=== PATIENT | female | born 1980 | race Two or more races ===

== ENCOUNTER 2025-03-08 08:17 | Emergency (ER) | payer OTHER, SELFPAY ==
--- OUTSIDE RECORDS SUMMARY | 2024-03-10 04:45 | XMS_ITS ---
Author Organization [facility] Address [address] [facility] [address] [place] [address] Care Team Providers Care Professor Of Forest Planning Name Role Phone Faby Quinteros Primary Care Provider [phone] Faby Quinteros M.D. Unavailabl e Martha Valdivia REASON FOR VISIT BLOOD DRAW Encounters Encounter Location Date Provider Diagnosis [facility] [address] [facility] [address] [place] [address] 03/10/2024 Martha Velázquez Plan Of Treatment No Information Progress Notes * TREMAINE GRAYSONDOB :1980 (44 yo F)Acc No.[id number]:03/10/2024 Patient: TREMAINE WHALEN Appointment Provider: Arron Velázquez, MSN, TEACHER, CUSTOM CLOTHIER-C :1980 A ge:43 Y S ex:Female Supervising Provider:Faby Quinteros MD Phone: Date:03/10/2024 Address:[facility] [address], [place], [place] Pcp:Faby Quinteros * Images: * Electronic signature of Linda Quinteros M.D. on 03/08/2025 at 07:37 AM CDT Sign off status: Pending * Appointment Provider: Arron Velázquez, MSN, TEACHER, CUSTOM CLOTHIER-C Date: 0 03/10/2024 Generated for Printi ng/Faxing/eTransmitting on: 0 03/08/2025 07:37 AM CDT
--- OUTSIDE RECORDS SUMMARY | 2025-01-19 05:15 | XMS_ITS ---
Author Organization [facility] Address [address] [place], [place] [id number] Care Team Providers Care Cloud Infrastructure Architect Name Role Phone Jasmine Russell Primary Care Provider REASON FOR VISIT PAP Social History Sex Assigned At : Social History Observation Description Sex Assigned At Female Encounters Encounter Location Date Provider Diagnosis Third [address] [place] [address], [place] [address] 01/19/2025 Jasmine Russell Plan Of Treatment Next Appt Details Provider Name:Jasmine moyer, 03/22/2025 09:15:00 AM, [address] [place] [address], [facility] [address], [facility], [place], [address], Provider Name:Jasmine moyer, 04/27/2025 09:15:00 AM, [address] [place] [address], [facility], [place], [address], Progress Notes * Nazia MANLEYDOB:1979 (44 yo F)Acc No.[id number]:01/19/2025 Medical Note Patient: Quinton HYMANPEREZ Nazia Provider: Thony Russell MD :1980 A ge:44 Y S ex:Female Date:01/19/2025 Address[address] [place], [phone] Subjective: * Chief Complaints: * 1 . PAP. * Medical History: Objective: * Vitals: Assessment: Plan: * Treatment: * Billing Information: * Visit Code: * Procedure Codes: * Electronic signature of Mine Russell MD on 03/08/2025 at 08:37 AM EDT Sign off status: Pending * Provider: Thony Russell MD Date: 01/19/2025 Generated for Pino boone/Ashkan/Nieves on: 03/08/2025 08:37 AM EDT
--- OUTSIDE RECORDS SUMMARY | 2025-03-07 05:00 | XMS_ITS ---
Author Organization [facility] Address [address] [place], [place] [address] Care Team Providers Care Inventory Checker Name Role Phone Jasmine Russell Primary Care Provider [phone] Allergies No Known Allergies REASON FOR VISIT Urgent Care F/U- [facility], 03/06, Boil behind LT Ear Medications Medication SIG (Take, Route, Frequency, Duration) Notes Start Date End Date Status Amoxicillin-Pot Clavulanate 875-125 MG 1 tablet Orally every 12 hrs Active Semaglutide-Weight Management 1.7 MG/0.75ML 0.5 mL Subcutaneous weekly Active Melatonin 5 MG 1 tablet in the even ing Orally Once a day as needed Not-Taking Social History Sex Assigned At : Social History Observation Description Sex Assigned At Female Vital Signs Temperature 97.3 degrees Fahrenheit 03/07/20 25 Weight 290.6 lbs 03/07/2025 Height 66 in 03/07/2025 BMI 46.9 kg/m2 03/07/2025 Blood pressure systolic 117 mm Hg 03/07/20 25 Blood pressure diastolic 76 mm Hg 025 Heart Rate 73 /min 03/07/2025 Respiratory Rate 16 /min 03/07/2025 Oximetry 95 % 03/07/2025 Weight-kg 131.82 kg 03/07/2025 Height-cm 167.64 cm 03/07/2025 Molly Bradley 03/07/2025 09 :14:06 AM EDT > Encounters Encounter Location Date Provider Diagnosis [address], [facility], [place] [address] 03/07/2025 Jasmine Russell Screening for luis fernando ast cancer Z12.39 and Abscess of external ear, left H60.02 Assessments Encounter Date Diagnosis (ICD Code) Assessment Notes Treatment Notes Treatment Clinical Notes Section Notes 03/07/2025 Screening for breast cancer (ICD-10 - Z12.39) The patient requires a new order for a mammogram, as she has not yet undergone the mammogram that was ordered on 01/12/25. 03/07/2025 Abscess of external ear, left (ICD-10 - H60.02) differential: mastioditis, cellulitis,skin abscess, lymphadenitis, and shingles, and was advised to take Tylenol for pain, complete the prescribed course of antibiotics, monitor for signs of shingles (such as a painful burning rash, itching, or a rash following a specific pattern), and report to the clinic or go to the ER immediately if symptoms develop. Plan Of Treatment Treatment Notes Assessment Notes Screening for breast cancer The patient requires a new order for a mammogram, as she has not yet undergone the mammogram that was ordered on 01/12/25. Abscess of external ear, left differenti al: mastioditis, cellulitis,skin abscess, lymphadenitis, and shingles, and was advised to take Tylenol for pain, complete the prescribed course of antibiotics, monitor for signs of shingles (such as a painful burning rash, itching, or a rash following a specific pattern), and report to the clinic or go to the ER immediately if symptoms develop. Pending Test Test Name Order Date MAMMOGRAM, SCREENING 03/07/2025 Next Appt Details Follow Up: 2 Weeks, Reason: ear boil Provider Name:Jasmine moyer, 03/22/2025 09:15:00 AM, [address] [facility], [facility], [place], [address], Provider Name:Jasmine moyer, 04/27/2025 09:15:00 AM, [address] [facility], [facility], [place], [address], Progress Notes * Divya MANLEY:1979 (44 yo F)Acc No.[id number]:03/07/2025 Medical Note Patient: Nazia WHALEN Provider: Thony Russell MD :1980 A ge:44 Y S ex:Female Date:03/07/2025 Address:[address] [place], [place] [address] [id number] Subjective: * Chief Complaints: * 1 . Urgent Care F/U- [facility], 03/06, Boil behind LT Ear. * HPI: I nterim History: The patient presenting with a chief complaint of severe ear pain and swelling from behind left ear raidaiting to cheek t hat has been present since Friday. The pain is rated 10/10 in intensity and is described as constant, with the patient reporting an inability to lie on the affected side due to discomfort. The swelling began around the ear and has progressively worsened. The patient denies any visible rash at the site of the swelling. The patient was seen at an urgent care clinic yesterday where she was diagnosed with a possible shingles outbreak?? and abscess of ear. She was p rescribed a 10-day course of Augmentin/Clav and advised to take pain medications for pain management. The patient denies any associated symptoms such as: Hearing loss Facial pain or palsy Fever There are no concerns of difficulty swallowing or breathing. The patient reports no history of previous similar episodes and denies any recent trauma to the affected area. No neurological deficits are noted, and there are no concerns for facial paralysis or other cranial nerve abnormalities. of note: The patient does have established care with sleep medicine, obstetrics/gynecology (OBGYN), and dermatology(pt was told skin tags removal are cosmetic procedure). * ROS: N egative except mentioned above in the HPI. * Medical History: * Surgical History: C -section 2012, left ankle surgery 2021, tubal ligation 2013. * Hospitalization/Major Diagno stic Procedure: s ee surgeries , migraines . * Family History: F ather: alive, diagnosed with Heart Disease, Diabetes. M other: alive. P aternal Grand Father: . P aternal Grand Mother: . M aternal Grand Father: . M aternal Grand Mother: . B rother: kidney failure, toe amputation. 2 brother(s) , 1 sister(s) . . * Medications: T aking Amoxicillin-Pot Clavulanate 875-125 MG Tablet 1 tablet Orally every 12 hrs , Taking Semaglutide-Weight Management 1.7 MG/0.75ML Solution Auto-injector 0.5 mL Subcutaneous weekly , Not-Taking/PRN Melatonin 5 MG Tablet 1 tablet in the evening Orally Once a day as needed , Medication List reviewed and reconciled with the patient * Allergies: N .K.D.A. Objective: * Vitals: T emp:97.3F, Wt:290.6lbs, Ht: 66 in, BMI:46.9Index, BP:117/76mm Hg, HR:73/min, RR:16/min, Pain scale:101-10, Oxygen sat %:95%, Wt-k.82 kg, Ht-cm: 167.64 cm, Body Surface Area: 2.48. Molly Bradley 03/07/2025 09:14:06 AM EDT >. * Examination: C QM Exceptions: Currently taking Aspirin: A spirin Use: N o G eneral appearance: alert, pleasant, well-nourished and in no acute distress. Head: normocephalic, atraumatic. Eyes: pupils equal, round, reactive to light. Heart: regular rate and rhythm without murmurs, gallops, clicks or rubs. Lungs: clear to auscultation bilaterally, with good air movement and no rales, rhonchi or wheezes. Psych: alert and oriented x 3, cooperative with exam, maintains good eye contact. Skin: No rashes. G eneral Examination: Ears: N o visible rashor erythema on the skin behind the left ear or surrounding area. Localized bumpbehind the left ear, about1.5 cmin diameter, with afirm, non-tenderconsistency. No obviouspus, discharge, ordrainagefrom the area. . Assessment: * Assessment: 1. A bscess of external ear, left - H60.02 (Primary) 2 . S creening for breast cancer - Z12.39 Plan: * Treatment: 2. S creening for breast cancer I maging: MAMMOGRAM, SCREENING Notes: The patient requires a new order for a mammogram, as she has not yet undergone the mammogramthat was ordered on 01/12/25.?? * Procedure Codes: 3 078F HTN DIAST BP < 80, 3074F HTN SYST BP < 130 * Follow Up: 2 Weeks (Reason: ear boil) * Billing Information: * Visit Code: 83276 Office Visit Est 20-29 minutes. * Procedure Codes: 3078F HTN DIAST BP < 80. 3074F HTN SYST BP < 130. * Sign off status: Completed true * Provider: Thony Russell MD Date: 0 03/07/2025 Generated for Pino boone/Ashkan/Joviitting on: 03/08/2025 08:38 AM EDT History and Physical Notes * HPI (History of Present Illness) Category Sub-Category Detail Notes Category Not es Interim History The patient presenting with a chief complaint of severe ear pain and swelling from behind left ear raidaiting to cheek that has been present since Friday. The pain is rated 10/10 in intensity and is described as constant, with the patient reporting an inability to lie on the affected side due to discomfort. The swelling began around the ear and has progressively worsened. The patient denies any visible rash at the site of the swelling. The patient was seen at an urgent care clinic yesterday where she was diagnosed with a possible shingles outbreak?? and abscess of ear. She was prescribed a 10-day course of Augmentin/Clav and advised to take pain medications for pain management. The patient denies any associated symptoms such as: Hearing loss Facial pain or palsy Fever There are no concerns of difficulty swallowing or breathing. The patient reports no history of previous similar episodes and denies any recent trauma to the affected area. No neurological deficits are noted, and there are no concerns for facial paralysis or other cranial nerve abnormalities. of note: The patient does have established care with sleep medicine, obstetrics/gynecology (OBGYN), and dermatology(pt was told skin tags removal are cosmetic procedure). Examination Category Sub-Category Detail Notes Category Not es General Examination Ears: No visible rash or erythema on the skin behind the left ear or surrounding area. Localized bump behind the left ear, about 1.5 cm in diameter, with a firm, non-tender consistency. No obvious pus, discharge, or drainage from the area. CQM Exceptions Currently taking Aspirin: Aspirin Use:: No General appearance: alert, pleasant, well-nourished and in no acute distress. Head: normocephalic, atraumatic. Eyes: pupils equal, round, reactive to light. Heart: regular rate and rhythm without murmurs, gallops, clicks or rubs. Lungs: clear to auscultation bilaterally, with good air movement and no rales, rhonchi or wheezes. Psych: alert and oriented x 3, cooperative with exam, maintains good eye contact. Skin: No rashes.
[2025-03-08 08:23] VITALS: BP 131/81; PULSE 74; TEMP 37.1; O2SAT 95; BMI 45.4
--- OUTSIDE RECORDS SUMMARY | 2025-03-08 08:37 | XMS_ITS | Encounter Summary ---
Author Organization [facility] Address [address] [place] [address] Care Team Providers Care Organ Builder Name Role Phone Hien Pineda MD Primary Care Provider [phone] Encounter Details Date Type Department Care Team (Late st Contact Info) Description 09/12/2020 Telephone [facility] [address] [facility] [address] [place] [address] Hien Pineda MD [address] [facility] [address] [place] [address] Social History Tobacco Use Types Packs/Day Years Used Date Smoking Tobacco: Former Smokeless Tobacco: Former Alcohol Use Standard Drinks/Week Comments No 0 (1 standard drink = 0.6 oz pur e alcohol) Overall Financial Resource Strain (CARDIA) Answe r Date Recorded How hard is it for you to pa y for the very basics like food, housing, medical care, and heating? Not hard at all 09/14/2020 PHQ-2 Answer Date Recorded PHQ-9 Total Score 0 09/14/2020 Hunger Vital Sign Answer Date Recorded Within the past 12 months, y ou worried that your food would run out before you got the money to buy more. Never true 09/14/20 20 Within the past 12 months, t he food you bought just didn't last and you didn't have money to get more. Never true 09/14/2020 Comments No Sex and Gender Information Value Date Recorded Sex Assigned at Female 06/01/2021 9:55 AM EDT Legal Sex Female 12:11 PM EST Gender Identity Female 06/01/2021 9:55 AM EDT Sexual Orientation Straight 06/01/2021 9: 55 AM EDT COVID-19 Exposure Response Date Recorded In the last month, have you been in contact with someone who was confirmed or suspected to have Coronavirus / COVID-19? No / Unsure 09/12/2020 1:53 PM EST documented as of this encounter Plan of Treatment Not on file documented as of this encounter Visit Diagnoses Not on filedocumented in this encounter Care Teams Organ Builder Relationship Specialty Start Date End Date Hien Pineda MD [address] [phone] PCP - General Family Medicine 11/20/17 documented as of this encounter
--- OUTSIDE RECORDS SUMMARY | 2025-03-08 08:38 | XMS_ITS | Encounter Summary ---
Author Organization [facility] Address [address] [place] [address] Care Team Providers Care Network Operations Specialist Name Role Phone Hien Pineda MD Primary Care Provider [phone] Reason for Visit * Reason Onset Date Comments Other 06/19/2021 Encounter Details Date Type Department Care Team (Late st Contact Info) Description 06/19/2021 Telephone [facility] [address] [place] [address] Ashok Oconnor MD [address] [place] [address] Other Social History Tobacco Use Types Packs/Day Years [...] Answer Date Recorded PHQ-9 Total Score 0 06/01/2021 Hunger Vital Sign Answer Date Recorded Within [...] have Coronavirus / COVID-19? No / Unsure 06/18/2021 11:13 AM EDT documented as of this encounter Plan of Treatment Not on file documented as of this encounter Visit Diagnoses Not on filedocumented in this encounter Care Teams Network Operations Specialist Relationship Specialty Start Date End Date Hien Pineda MD [address] [place], [place] [phone] PCP - General Family Medicine 11/20/17 documented as of this encounter
--- OUTSIDE RECORDS SUMMARY | 2025-03-08 08:38 | XMS_ITS | Patient Health Record ---
Author Organization [facility] [employer] [facility] vices Address [address] [place], [place] [address] Care Team Providers Care Traffic Operator Name Role Phone Jasmine Russell Primary Care Provider [phone] Allergies No Known Allergies Results Component Value Reference Range Notes Cologuard Reviewed date:02/04/2025 10:46:06 AM Interpretation: Performing Lab: Notes/Report: LIPID PANEL WITH REFLEX TO D IRECT LDL Reviewed date:01/13/2025 09:14:45 AM Interpretation: Performing Lab: Notes/Report: CHOLESTEROL 161 100-199 mg/dL TRIGLYCERIDES 170 20-149 mg/dL VLDL-CHOL, CALCULATED 34 <30 mg/dL HDL-CHOL 50 >=50 mg/dL LDL-CHOL, CALCULATED 77 <130 mg/dL ADULT LDL CHOLESTEROL CLASSIFICATION <100mg/dL Optimal 100-129mg/dL Near/Abo ve Optimal 130-159mg/dL Borderli ne High >160mg/dL High Risk Desirable range <100 mg/dL for patients with CHD or diabetes and <70 mg/dL for diabetic patients with known heart disease. Direct LDL is recommended for patients with triglycerides >400. LDL/HDL 1.5 <4.1 LDL/HDL RATIO MALE FEMALE below average risk <2.3 <2.3 average risk <5.0 <4.1 moderate risk <7.1 <5.6 high risk >7.1 >5.6 CHOL/HDL 3.2 2.0-4.5 BASIC METABOLIC PANEL WITH G FR Reviewed date:01/13/2025 09:14:54 AM Interpretation: Performing Lab: Notes/Report: GLUCOSE 95 70-100 mg/dL BUN 10 6-20 mg/dL CREATININE, BLOOD 0.61 0.51-1.15 mg/dL eGFR (2020 CKD-EPI) 112 >59 mL/min/1.73m2 CALCIUM 9.0 8.6-10.5 mg/dL SODIUM 140 135-148 mmol/L POTASSIUM 4.5 3.5-5.4 mmol/L CHLORIDE 102 96-107 mmol/L CO2 24 18-32 mmol/L ANION GAP 14 7-16 mmol/L CBC W/AUTO DIFF Reviewed date:01/13/2025 09:14:27 AM Interpretation: Performing Lab: Notes/Report: WBC 7.2 3.6-11.0 THDS/CMM RBC 4.06 3.80-5.20 MILL/CMM HGB 11.8 11.9-16.0 G/DL HCT 35.8 35-47 % MCV 88 75-100 fL MCH 29.1 26.0-33.0 pg MCHC 33.0 32.0-35.0 g/dl RDW 13.4 11.2-14.8 % PLATELET 275 140-440 THOUS/CMM NEUTROPHILS 64.8 45-75 % LYMPHOCYTES 23.0 20-45 % MONOCYTES 8.9 0-13 % EOSINOPHILS 2.6 0-5 % BASOPHILS 0.4 0-2 % IMMATURE GRAN 0.3 0-2 % ABS NEUTROPHILS 4.67 1.9-8.0 K/uL ABS LYMPHOCYTES 1.66 0.9-5.2 K/uL ABS MONOCYTES 0.64 0.1-1.0 K/uL ABS EOSINOPHILS 0.19 0.0-0.80 K/uL ABS BASOPHILS 0.03 0.0-0.2 K/uL ABS IMMATURE GRAN 0.02 0.00-0.06 K/uL HIV-1 2 COMBO AG/AB Reviewed date:01/13/2025 09:15:06 AM Interpretation: Performing Lab: Notes/Report: Negative for HIV-1 antigen and HIV-1/HIV-2 antibodies. No laboratory evidence of HIV infection. Does not exclude the possibility of exposure to or infection with HIV-1 and/or HIV-2 that are below the limit of detection of this assay. HIV-1,2 COMBO AG/AB Nonreactive Nonreactive HIV-1 p24 Ag Nonreactive Nonreactive HIV-1/HIV-2 Abs Nonreactive Nonreactive HEPATITIS C AB REFLEX QUANT Reviewed date:01/13/2025 09:14:58 AM Interpretation: Performing Lab: Notes/Report: HEPATITIS C AB NEGATIVE NEGATIVE UNLESS OTHERWISE INDICATED, ALL TESTING PERFORMED AT: [employer] [address] [place] [id number] TAG CLERK: ELAYNE BLAKE M.D. CLIA NUMBER [id number] CAP ACCREDITATION AUID [id number] POCT A1C Reviewed date:01/12/2025 10:37:25 AM Interpretation: Performing Lab: Notes/Report: Reason For Referral Reason heavy menses failed depo and ocp Diagnosis 1 Menorrhagia with reg ular cycle (N92.0) Referral Organization Third Referring Provider First Name Jasmine Referring Provider Last Name Drew Referring Provider [facility] icine Referred Provider [facility] Judd [facility] Referred Provider Specialty OB - Gynecol ogy General Notes Stacey Lindo 02/09/2025 09:53:19 AM >note in chart Referral Priority Routine Reason eval for pessary. Diagnosis 1 Stress incontinence in female (N39.3) Referral Organization Third Referring Provider First Name Jasmine Referring Provider Last Name Drew Referring Provider [facility] icine Referred Provider [facility] [facility] [facility] Judd [facility] Referred Provider Specialty OB - Gynecol ogy General Notes Stacey Lindo 02/09/2025 09:53:05 AM >note in chart Referral Priority Routine Reason sleep study for slee p apnea Diagnosis 1 Sleep apnea syndrome (G47.30) Referral Organization Third Referring Provider First Name Jasmine Referring Provider Last Name Drew Referring Provider [facility] icine Referred Provider [facility] [place] Referred Provider Specialty Pulmonology General Notes Zina Allen 02/18/20 10:46:08 AM >Called and LVM about referral followup., Zina Allen 02/23/2025 02:13:34 PM >Called referral provider and pt has appointment scheduled., Kallie May 03/01/2025 03:53:38 PM >Patient scheduled for 05/11/2025. Referral Priority Routine Referral Appointment Date 05/11/2025 Reason skin tag removal Diagnosis 1 Skin tag (L91.8) Referral Organization Third Referring Provider First Name Jasmine Referring Provider Last Name Drew Referring Provider [facility] Referred Provider Ez Flaherty Referred Provider Specialty Dermatology General Notes Zina Allen 02/18/20 10:46:45 AM >Called and LVM about referral followup, Zina Allen 02/28/2025 09:10:56 AM >Called referral office and LVM, Zina Allen 03/01/2025 11:08:04 AM >Sent referral office fax for referral followup., Zina Allen 03/01/2025 01:09:06 PM >Referral office sent fax back stating no appt was made. I sent another txt to pt to follow up on referral., Kallie May 03/01/2025 03:54:37 PM >Patient was provider with Phone number so that she call office to schedule., Molly Bradley 03/07/2025 09:19:11 AM >pt here for office visit and informs that she called Derm office and they informed her that skin tag removal is considered cosmetic and inusrance will not cover that. It would cost approx $500, and pt declined. Referral Priority Routine Medications Medication SIG (Take, Route, Frequency, Duration) Notes Start Date End Date Status Amoxicillin-Pot Clavulanate 875-125 MG 1 tablet Orally every 12 hrs Active Semaglutide-Weight Management 1.7 MG/0.75ML 0.5 mL Subcutaneous weekly Active Melatonin 5 MG 1 tablet in the even ing Orally Once a day as needed Not-Taking Social History Tobacco Use: Social History Observation Description Date Details (start date - stop date) Former Smoker 08/29/1997 - 07/30/2022 Sex Assigned At : Social History Observation Description Sex Assigned At Female Tobacco Use/Smoking Question Answer Notes Tobacco use: former smoker patient enter ed data How long has it been since you last smoked? 1-5 years patient entered data When did you start smoking? 08/29/1997 p atient entered data When did you stop smoking? 07/30/2022 rich cerda entered data CAGE-AID Questionnaire (2018 Edition) Question Answer Notes Have you ever felt that you ought to cut down on your drinking or drug use? Yes patient ente red data Have people annoyed you by c riticizing your drinking or drug use? No patient entered data Have you ever felt bad or gu ilty about your drinking or drug use? Yes patient entered data Have you ever had a drink or used drugs first thing in the morning to steady your nerves or to get rid of a hangover? No patient entered data CAGE-AID Score 2 Interpretation Clinically Significant PRAPARE Question Answer Notes Date Completed/Updated: 01/12/2025 lexus nt entered data What is your current housing situation? I have housing patient entered data Are you worried about losing your housing? No patient entered data What is the highest level of school that you have finished? More than high school patient entered data What is your current work situation? Unemployed and seeking work patient entered data In the past year, have you o r any family members you live with been unable to get any of the following when it was really needed? Check all that apply Food,Clothing,Utilities,Medi cine or any health care (medical, dental, mental health or vision) Has lack of transportation k ept you from medical appointments, meetings, work or from getting things needed for daily living? Yes, it has kept me from non-medical meetings, appointments, work, or getting things needed for daily living How often do you see or talk to people that you care about and feel close to? (For example: talking to friends on the phone, visiting friends or family, going to roman catholic or club meetings) Less than once a week patient entered data How stressed are you? Stress is when someone feels tense, nervous, anxious, or can't sleep at night because their mind is troubled Very much patient entered data In the past year have you sp ent more than 2 nights in a row in a nursing home, alf, usp center, or juvenile correctional facility? No patient entered data Are you a refugee? No patient en tered data What country are you from? [place] rich cerda entered data Do you feel physically and emotionally safe where you currently live? Yes patient entered data In the past year, have you b een afraid of your partner or ex-partner? No patient entered data PRAPARE Score: 12 Problems Problem Type SNOMED Code ICD Code Onset Dates Problem Status W/U Status Risk Notes Problem [id number] Menorrhagia with regular cycle (N92.0) Active confirmed Problem 003346204 Obesity, Class III, BMI 40-49.9 (morbid obesity) (E66.01) Active confirmed Problem Sleep apnea syndrome (G47.30) Active confirmed Problem [id number] Stress incontinence in female (N39.3) Active confirmed Vital Signs Heart Rate 73 /min 03/07/2025 Molly Bradley 03/07/2025 09:14:06 AM EDT > Temperature 97.3 degrees Fahrenheit 03/07/2025 Molly Avelar 03/07/2025 09:14:06 AM EDT > Respiratory Rate 16 /min 03/07/2025 Shasta Bradley 03/07/2025 09:14:06 AM EDT > Height-cm 167.64 cm 03/07/2025 Molly Bradley 03/07/2025 09:14:06 AM EDT > Oximetry 95 % 03/07/2025 Molly Bradley 03/07/2025 09:14:06 AM EDT > Blood pressure diastolic 76 mm Hg 03/07/2025 Molly Calderon 03/07/2025 09:14:06 AM EDT > Weight-kg 131.82 kg 03/07/2025 Molly Bradley 03/07/2025 09:14:06 AM EDT > Height 66 in 03/07/2025 Molly Bradley 03/07/2025 09:14:06 AM EDT > Blood pressure systolic 117 mm Hg 03/07/2025 Molly Avelar 03/07/2025 09:14:06 AM EDT > Weight 290.6 lbs 03/07/2025 Molly Bradley 03/07/2025 09:14:06 AM EDT > BMI 46.9 kg/m2 03/07/2025 Molly Bradley 03/07/2025 09:14:06 AM EDT > Encounters Encounter Location Date Provider Diagnosis Third [address], [facility], [place] [address] 01/12/2025 Jasmine Drew Encounter for wel lness examination in adult Z00.00 ; Screening for diabetes mellitus Z13.1 ; Encounter for screening for HIV Z11.4 ; Encounter for screening mammogram for breast cancer Z12.31 ; Screening for colon cancer Z12.11 ; Encounter for screening for cardiovascular disorders Z13.6 ; Epigastric pain R10.13 ; Menorrhagia with regular cycle N92.0 ; Moderately severe depression F32.A ; Stress incontinence in female N39.3 ; Dietary counseling Z71.3 and Obesity, Class III, BMI 40-49.9 (morbid obesity) E66.[address], [facility], [place] [address] 01/26/2025 Jasmine Drew Skin tag L91.8 ; Stress incontinence in female N39.3 ; Sleep apnea syndrome G47.30 ; Elevated blood pressure (not hypertension) R03.0 ; Cervical cancer screening Z12.4 and Obesity, Class III, BMI 40-49.9 (morbid obesity) E66.[address], [place] [address] 03/07/2025 Jasmine Drew Screening for luis fernando ast cancer Z12.39 and Abscess of external ear, left H60.02 [address] [facility], [place] [id number] 01/13/2025 Jasmine Drew [address] [facility] [place] [id number] 03/07/2025 Jasmine Drew Assessments Encounter Date Diagnosis (ICD Code) Assessment Notes Treatment Notes Treatment Clinical Notes Section Notes 01/12/2025 Screening for diabetes mellitus (ICD-10 - Z13.1) 01/12/2025 Encounter for wellness examination in adult (ICD-10 - Z00.00) Pt is here for wellness today. Overall health is okay. I advised to get baseline tests and pt is agreeable for that. I advised regular exercise and eating a balanced diet with focus on eating less fried and fatty foods and eating more fresh fruits and vegetable in an attempt to achieve and maintain a healthy BMI and PVU 01/26/2025 Skin tag (ICD-10 - L91.8) 03/07/2025 Screening for breast cancer (ICD-10 - [...] to the ER immediately if symptoms develop. 01/26/2025 Stress incontinence in female (ICD-10 - N39.3) pt has been referred to OB for eval and possibly pessary placement. 01/12/2025 Encounter for screening for HIV (ICD-10 - Z11.4) 01/12/2025 Encounter for screening mammogram for breast cancer (ICD-10 - Z12.31) 01/26/2025 Sleep apnea syndrome (ICD-10 - G47.30) 01/26/2025 Elevated blood pressure (not hypertension) (ICD-10 - R03.0) helathy diet, exercise discussed wt pt. Pt advised to keep bp log and bring to next OV. 01/12/2025 Screening for colon cancer (ICD-10 - Z12.11) 01/12/2025 Encounter for screening for cardiovascular disorders (ICD-10 - Z13.6) 01/26/2025 Cervical cancer screening (ICD-10 - Z12.4) Pt may have had a Pap in 2023 will request record from [place] 01/26/2025 Obesity, Class III, BMI 40-49.9 (morbid obesity) (ICD-10 - E66.01) Pt receives semaglutide in a wellness clinic her dose was increased to 2MG. Encouraged eating a healthy, balanced diet and increasing activity level by engaging in exercise atleast 30 min x atleast 5 days a week. Educational material was provided and patient was encouraged to use the resources to find the best options for a balanced diet. 01/12/2025 Epigastric pain (ICD-10 - R10.13) 01/12/2025 Menorrhagia with regular cycle (ICD-10 - N92.0) 01/12/2025 Moderately severe depression (ICD-10 - F32.A) Patient reports experiencing significant stress at home but denies suicidal ideation. Counseling and support were provided during the visit. She was informed that behavioral health services and medication options are available if needed, and she is encouraged to reach out for support at any time. 01/12/2025 Stress incontinence in female (ICD-10 - N39.3) Pt has tried Kegel exercises and bnec-xrs-qgfawxk medications to reduce frequent urination, but neither has been effective. 01/12/2025 Dietary counseling (ICD-10 - Z71.3) Encouraged eating a healthy, balanced diet and increasing activity level by engaging in exercise atleast 30 min x atleast 5 days a week. Educational material was provided and patient was encouraged to use the resources to find the best options for a balanced diet. 01/12/2025 Obesity, Class III, BMI 40-49.9 (morbid obesity) (ICD-10 - E66.01) 01/26/2025 Other Plan Of Treatment Pending Test Test Name Order Date MAMMOGRAM, SCREENING 03/07/2025 Next Appt Details Provider Name:Jasmine moyer, 03/22/2025 09:15:00 AM, [address] [place] [address], [facility], [place], [address], Provider Name:Jasmine moyer, 04/27/2025 09:15:00 AM, [address] [place] [address], [facility], [facility], [place], [address], Insurance Providers Payer Name Payer Address Payer Phone Subscriber Number Group Number Insured Name Patient Relationship to Insured Coverage Start Date Coverage End Date [employer] [address] [address] [place], [place] [id number] Sadi Manley Spouse - patient is the spouse of the insured 4 Medical (General) History Surgical History Surgery Date(Month/Year) 2012 left ankle surgery 2021 tubal ligation 2013 Hospitalization History Reason Date(Month/Year) migraines see surgeries
--- OUTSIDE RECORDS SUMMARY | 2025-03-08 08:38 | XMS_ITS | Encounter Summary ---
Author Organization [facility] Address [address] [place] [address] Care Team Providers Care Imaging Technologist Name Role Phone Hien Pineda MD Primary Care Provider Reason for Visit * Reason Comments Medication Refill Encounter Details Date Type Department Care Team (Late st Contact Info) Description 08/26/2017 Refill [facility] Medicine [address] [facility] [address] [place] [address] Hien Pineda MD [address] [facility] [address] [place] [address] Medication Refill Social History Tobacco Use Types Packs/Day Years Used Date Smoking Tobacco: Former Smokeless Tobacco: Former Alcohol Use Standard Drinks/Week Comments No 0 (1 standard drink = 0.6 oz pur e alcohol) Comments No Sex and Gender Information Value Date Recorded Sex Assigned at Female 06/01/2021 9:55 AM EDT Legal Sex Female 12:11 PM EST Gender Identity Female 06/01/2021 9:55 AM EDT Sexual Orientation Straight 06/01/2021 9: 55 AM EDT documented as of this encounter Plan of Treatment Not on file documented as of this encounter Visit Diagnoses Diagnosis Morbid obesity with BMI of 40.0-44.9, adult (HCC) documented in this encounter Care Teams Imaging Technologist Relationship Specialty Start Date End Date Hien Pineda MD [address] [address] PCP - General Family Medicine 11/20/17 documented as of this encounter
--- OUTSIDE RECORDS SUMMARY | 2025-03-08 08:38 | XMS_ITS | Encounter Summary ---
Author Organization [facility] Address [address] [place] [address] Care Team Providers Care Oil Field Equipment Mechanic Name Role Phone Hien Pineda MD Primary Care Provider [phone] Reason for Visit * Reason Onset Date Comments Other 06/08/2021 upset about resc hedule Encounter Details Date Type Department Care Team (Late st Contact Info) Description 06/08/[address] [facility] Orthopedics and Sports Medicine [address] [facility] [place] [place] [address] Ashok Oconnor MD [address] [place] [address] Other (upset about reschedule ) Social History Tobacco Use Types Packs/Day Years [...] on filedocumented in this encounter Care Teams Oil Field Equipment Mechanic Relationship Specialty Start Date End Date Hien Pineda MD [address] [place] [address] PCP - General Family Medicine 11/20/17 documented as of this encounter
--- OUTSIDE RECORDS SUMMARY | 2025-03-08 08:38 | XMS_ITS | Clinical Summary ---
Author Organization [employer] Address [id number] [address] [place] [address] Care Team Providers Care Soda Drier Feeder Name Role Phone Hien Pineda MD Primary Care Provider [phone] Allergies No known active allergies Medications semaglutide 1.7 mg/0.22 mL syringe 0.5 mL Subcutaneous weekly Active Active Problems Problem Noted Date Diagnosed Date Rectocele without uterine prolapse 01/27/2025 Encounters Date Type Department Care Team Description 01/27/2025 8:45 AM EDT [facility]olog [facility] [address] [place] [place] [address] Kathy Lorenzo, MASS SPECTROSCOPIST-CNM Mixed incontinence urge and stress (Primary Dx); Metrorrhagia; History of ovarian cyst; Rectocele without uterine prolapse 01/27/2025 Travel from Last 3 Months Family History Medical History Relation Name Comments Breast cancer Neg Hx Colon cancer Neg Hx Diabetes Neg Hx Ovarian cancer Neg Hx Pancreatic cancer Neg Hx Prostate cancer Neg Hx Uterine cancer Neg Hx Relation Name Status Comments Father Alive Mother Alive Social History Tobacco Use Types Packs/Day Years Used Date Smoking Tobacco: Never Smokeless Tobacco: Never Tobacco Cessation:Counseling Given: Not Answered Alcohol Use Standard Drinks/Week Comments Never 0 (1 standard drink = 0.6 oz pur e alcohol) PHQ-2 Answer Date Recorded Total Score 0 12/08/2018 Childcare Answer Date Recorded Childcare Unknown 03/11/2019 Employment Answer Date Recorded Employment Unknown 03/11/2019 Hunger Screening Answer Date Recorded Within the past 12 months we worried whether our food would run out before we got money to buy more. Never True 01/27/2025 Within the past 12 months th e food we bought just didn't last and we didn't have money to get more. Never True 01/27/2025 Purpose - Life Answer Date Recorded Purpose and direction in life Unknown Comments No Sex and Gender Information Value Date Recorded Sex Assigned at Female 05/27/2022 3:35 PM EDT Legal Sex Female 3:53 PM EDT Gender Identity Female 05/27/2022 3:35 PM EDT Sexual Orientation Straight 05/27/2022 3: 35 PM EDT Last Filed Vital Signs Vital Sign Reading Time Taken Comments Blood Pressure 124/82 01/27/2025 9:09 AM EDT Pulse 89 02/12/2020 10:42 PM EDT Temperature 36.8 C (98.2 F) 02/12/2020 6:35 PM EDT Respiratory Rate 18 02/12/2020 10:42 PM EDT Oxygen Saturation 99% 02/12/2020 10:42 PM EDT Inhaled Oxygen Concentration - - Weight 130.6 kg (288 lb) 01/27/2025 9:09 AM EDT Height 175.3 cm (5' 9 ) 01/27/2025 9:09 AM EDT Body Mass Index 42.53 01/27/2025 9:09 AM EDT Plan of Treatment Upcoming Encounters Date Type Department Care Team (Late st Contact Info) Description 05/11/2025 1:15 PM EDT Office Visit [facility] Pulmonary/Sleep Medicine [address] [place] [address] Dolly Cortez, MASS SPECTROSCOPIST-JUVENILE JUSTICE OFFICER [address], [address] [place] [address] Health Maintenance Due Date Last Done Comments Depression Screening 1991 Adult BMI Follow Up Plan 1997 Pap Smear 2000 Influenza Vaccine 05/30/2025 11/21/2024, , 08/28/2021, Additional history exists Adult BMI Screening 01/27/2026 01/27/2025 Tobacco Screening 01/27/2026 01/27/2025 DTaP,Tdap and Td Vaccines (2 - Td or Tdap) 08/28/2030 08/28/2020 COVID-19 Vaccine Completed 11/21/2024, , 01/25/2021, Additional history exists Medical Devices Not on file Procedures Procedure Name Priority Date/Time Associated Diagnosis Comments URINALYSIS Routine 01/27/2025 10:26 AM EDT Mixed incontinence urge and stress URINE CULTURE Routine 01/27/2025 10:26 AM EDT Mixed incontinence urge and stress from Last 3 Months Results * (ABNORMAL) Urinalysis (01/27/2025 10:26 AM EDT) COLOR Yellow Yellow, Colorless 01/27/2025 7:13 PM T [facility] TURBIDITY Hazy(A) Clear 01/27/2025 7:13 PM T [facility] SPECIFIC GRAVITY 1.027 1.003 - 1.035 01/27/2025 7:13 PM T [facility] NITRITE Negative Negative 01/27/2025 7:13 PM [facility] PH,URINE 6.0 5.0 - 8.5 01/27/2025 7:13 PM [facility] LEUKOCYTE ESTERASE Moderate(A) Negative 01/27/2025 7:13 PM [facility] PROTEIN Trace(A) Negative 01/27/2025 7:13 PM [facility] KETONES (URINE) Negative Negative 7:13 PM EDT [facility] UROBILINOGEN <1.1 eu/dL <1.1 eu/dL 01/27/2025 7:13 PM [facility] BILIRUBIN (URINE) Negative Negative 01/27/2025 7:13 PM [facility] BLOOD/HGB Moderate(A) Negative 01/27/2025 7:13 PM [facility] MUCOUS Present(A) None 01/27/2025 7:13 PM [facility] R.B.CELLS 3 0 - 5 01/27/2025 7:13 PM EDT [facility] SQUAMOUS EPITHELIUM >27(H) 0 - 5 01/27/2025 7:13 PM EDT [facility] TRANSITIONAL EPITH <1(H) <=0 01/27/2025 7:13 PM EDT [facility] W.B.CELLS 15(H) 0 - 5 01/27/2025 7:13 PM EDT [facility] GLUCOSE (URINE) Negative Negative 7:13 PM EDT [facility] Urine Urine specimen collection, clean catch / Unknown 01/27/2025 10:26 AM EDT 01/27/2025 10:26 AM EDT us Kathy Lorenzo MASS SPECTROSCOPIST-CNM URINE ORDERABLES Final R esult [facility] [address] [place] [address], [place] [phone] * Urine Culture (01/27/2025 10:26 AM EDT) CULTURE RESULTS <10,000 ORGANISMS/m L NORMAL URO GENITAL GOVIND 01/28/2025 5:56 PM EDT [facility] Urine Urine specimen collection, clean catch / Unknown 01/27/2025 10:26 AM EDT 01/27/2025 10:26 AM EDT us Kathy Lorenzo MASS SPECTROSCOPIST-CNM MICROBIOLOGY - GENERAL O RDERABLES Final Result [facility] [address] [place] [address], [place] [phone] from Last 3 Months Insurance [employer] Care Teams Soda Drier Feeder Relationship Specialty Start Date End Date Hien Pineda MD [address] [address] PCP - General Family Medicine 05/29/18
--- OUTSIDE RECORDS SUMMARY | 2025-03-08 08:38 | XMS_ITS | Patient Health Record ---
Author Organization [facility] Address [address] [place] [address] Care Team Providers Care Channel Sales Manager Name Role Phone Faby Quinteros Primary Care Provider [phone] Faby Quinteros M.D. 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 Oral Not-Takin g metroNIDAZOLE 500 MG Oral Not-Taking Doxycycline Hyclate 100 MG Oral Not-Taking Social History Tobacco Use: Social History Observation Description Date Details (start date - stop date) Never Smoker NA - NA Sexual History Question Answer Notes Had sex in the past 12 months (vaginal, oral, or anal)? Yes with Men only Use protection? No Have you ever had a Sexually transmitted disease ? No Last menstrual period 11/2023 Tobacco Control (Standard) Question Answer Notes Tobacco use: Nonsmoker Problems Problem Type SNOMED Code ICD Code Onset Dates Problem Status W/U Status Risk Notes Problem 7716484 Hypocalcemia (E83.51) Active confirmed Problem 086008282 Acanthosis nigri cans (L83) Active confirmed Problem 414150230 Hypertriglycerid emia (E78.1) Active confirmed Problem 055343444 Hepatic steatosi s (K76.0) Active confirmed Problem 025048361 Diverticulosis (K57.90) Active confir med Problem 858453657 Neutrophilic leukocytosis (D72.9) Active confirmed Problem 012846464 Obesity, Class I II, BMI 40-49.9 (morbid obesity) (E66.01) Active confirmed Vital Signs Heart Rate 93 /min 03/09/2024 Temperature 98.8 degrees Fahrenheit 03/09/2024 Oximetry 97 % 03/09/2024 Blood pressure diastolic 70 mm Hg 03/09/2024 Height 66.2 in 03/17/2024 NO VITALS TAKEN , TELAMEDICINE VISIT Blood pressure systolic 120 mm Hg 03/09/2024 Weight 294.0 lbs 03/09/2024 BMI 47.16 kg/m2 03/09/2024 Encounters Encounter Location Date Provider Diagnosis [facility] [address] [place] [address] [address] [place] [address] 03/10/2024 Martha Velázquez [facility] [address] [place] [address] [address] [place] [address] 03/09/2024 Martha Velázquez Right ovarian cyst N83.201 ; Hepatic steatosis K76.0 ; Salpingo-oophoritis N70.93 ; Hospital discharge follow-up Z09 and Obesity, Class III, BMI 40-49.9 (morbid obesity) E66.01 [facility] [address] [place] [address] [address] [place] [address] 03/17/2024 Martha Velázquez Hypertriglyceridemia E78.1 ; Prediabetes R73.03 ; Right ovarian cyst N83.201 ; Hepatic steatosis K76.0 ; Salpingo-oophoritis N70.93 and Obesity, Class III, BMI 40-49.9 (morbid obesity) E66.01 [facility] [address] [place] [address] [address] [place] [address] 03/12/2024 Faby Quinteros Assessments Encounter Date Diagnosis (ICD Code) Assessment Notes Treatment Notes Treatment Clinical Notes Section Notes 03/09/2024 Hepatic steatosis (ICD-10 - K76.0) 03/09/2024 Right ovarian cyst (ICD-10 - N83.201) per pelvis US - small simple right ovarian cyst 2.8cm will be evaluted by Dr. Ndiaye SAVANNA Was admitted at [facility] due to lower abd pain and fever 03/17/2024 Prediabetes (ICD-10 - R73.03) hgb a1c 5.8 Patient has been advised to monitor A1c A1c rage in the prediabetes category. advise to monitor carbohydrate intake wt loss recommended calorie counting may help increase exercise 03/17/2024 Hypertriglyceridemia (ICD-10 - E78.1) Trig 397 discussed diet and exercise recommended to take Fish oil BID will repeat in 4 mo 03/17/2024 Right ovarian cyst (ICD-10 - N83.201) per pelvis US - small simple right ovarian cyst 2.8cm per OBGYN 03/09/2024 Salpingo-oophoritis (ICD-10 - N70.93) Left tubo-ovarian abscess was treated with triple antibiotics flagyl, doxy and rocephin followed by Dr. Ndiaye tomorrow 03/17/2024 Hepatic steatosis (ICD-10 - K76.0) discussed diet and exercise liver enzymes normalized from ER blood work 03/09/2024 Hospital discharge follow-up (ICD-10 - Z09) admitted at [facility] due to severe lower abd pain and fevers x 6 days on March 02 - March 09 due to presumptive PID ER tubo-ovarian abscess and treated with triple antibiotics, repeat ultrasound showed no mass was identified. will be following up with Dr. Ndiaye for Post hospital eval 03/09/2024 Obesity, Class III, BMI 40-49.9 (morbid obesity) (ICD-10 - E66.01) -BMI has been identified as above normal -Recommendatio ns include diet modification and increasing exercise -f/u as scheduled 03/17/2024 Salpingo-oophoritis (ICD-10 - N70.93) Left tubo-ovarian abscess completed triple antibiotics flagyl, doxy and rocephin patient had outpatient follow up with Dr. Ndiaye - per patient, he ordered an US and follow up in may. patient would like a second opinion placed today 03/17/2024 Obesity, Class III, BMI 40-49.9 (morbid obesity) (ICD-10 - E66.01) -BMI has been identified as above normal -Recommendatio ns include diet modification and increasing exercise 03/17/2024 Other Plan Of Treatment Future Test Test Name Order Date Hemoglobin A1c 07/17/2024 Vitamin D, 25-Hydroxy 07/17/2024 Lipid Panel 07/17/2024 Comp. Metabolic Panel (14) 07/17/2024 Insurance Providers Payer Name Payer Address Payer Phone Subscriber Number Group Number Insured Name Patient Relationship to Insured Coverage Start Date Coverage End Date [facility] [address] [place] [address] [id number] TREMAINE GRAYSON Self - patient is the insured 4 Medical (General) History Medical History History ICD Code migraine headaches Surgical History Surgery Date(Month/Year) x1 left ankle ligaments 2021 Hospitalization History Reason Date(Month/Year) childbirth x6
--- NOTE | 2025-03-08 09:01 | ED.GENADUL1 ---
HPI HPI - General Adult General Chief complaint: Skin/Abscess/Foreign Body Stated complaint: LUMP - NECK Time Seen by Provider: 03/08/25 08:27 Source: patient and family Mode of arrival: walk-in Limitations: no limitations History of Present Illness HPI narrative: The patient is coming to the ER few days after she developed this lymphadenopathy in the left side of the neck, she also complained of left neck and ear pain patient was just evaluated 2 days ago in an urgent care where she was started on Augmentin, The patient mentioned that on Friday which is almost 4 days ago there she started having some left ear pain with no difficulty hearing, no fever no chills no nausea no vomiting, she had some painful swallowing with mostly solid foods, no difficulty breathing , Related Data Home Medications ?Medication ?Instructions ?Recorded ?Confirmed amoxicillin 875 mg-potassium 1 tab PO BID 03/08/25 03/08/25 clavulanate 125 mg tablet Previous Rx's ?Medication ?Instructions ?Recorded tramadol 50 mg tablet 50 mg PO Q8H PRN pain 3 days #9 03/08/25 tabs Allergies Allergy/AdvReac Type Severity Reaction Status Date / Time No Known Drug Allergies Allergy Verified 03/08/25 08:23 Opioid HPI Opioid Management Most Recent Opioid Data: Last Pain Scale 10 Today, 08:23 Review of Systems ROS Status of ROS 10 or more systems reviewed and unremarkable except as noted in history and below PFSH PFSH Social History Little interest or pleasure in doing things: not at all Feeling down, depressed, or hopeless: not at all Exam Narrative Exam Narrative: Nurses notes and vital signs reviewed and patient is not hypoxic. General: Well-appearing and in no apparent distress. Skin: Skin examination showed that the patient have a at the lower end of the scalp posteriorly at the occipital area the patient have a few lesions that are vesicular at the left midline, also at the left side of the neck just below the mandible the patient had 3-4 lesions that are vesicular to, not crusty, on the left side of the neck the patient had a lymphadenopathy of 2 x 3 cm oval in shape and it is tender, just below the left ear auricle also with the patient have 1 or 2 lesions, there is no lesion inside the ear and there is 1 lesion just anterior to the ear auricle and the left side Head: Normocephalic, atraumatic. Neck: Supple, left-sided submandibular lymphadenopathy. Eye: Pupils are equal, round and EOMI. No scleral icterus. Ears, Nose, Mouth, and Throat: TM are clear, no nasal mucosal hypertrophy. Oral mucosa is moist, no posterior oropharynx erythema, uvula is mid-line Cardiovascular: Regular Rate and Rhythm without murmur, gallop or rub. Respiratory: No accessory muscle use or respiratory distress. Lungs are clear to auscultation, no wheezing, rales or rhonchi Chest Wall: no tenderness Back: No midline thoracic or lumbar vertebral tenderness. No CVA tenderness Musculoskeletal: normal ROM, no calf or popliteal tenderness, no lower extremity edema/swelling GI: Abdomen is soft, non-distended. Normal bowel sounds. No masses appreciated. No tenderness to palpation. No rebound, guarding, or rigidity noted. Neurological: A&O x4. No cranial nerve dysfunction observed. No truncal ataxia. Moves all extremities. Sensation intact. Psychiatric: Cooperative and interactive. Normal mood and affect. Constitutional Vital Signs, click to edit/add: Last Vital Signs Temp 98.7 F 03/08/25 08:23 Pulse 74 03/08/25 08:23 Resp 18 03/08/25 08:23 BP 131/81 03/08/25 08:23 Pulse Ox 95 03/08/25 08:23 O2 Del Method Room Air 03/08/25 08:23 Course Vital Signs Vital signs: Vital Signs Temperature 98.7 F 03/08/25 08:23 Pulse Rate 74 03/08/25 08:23 Respiratory Rate 18 03/08/25 08:23 Blood Pressure 131/81 03/08/25 08:23 Pulse Oximetry 95 03/08/25 08:23 Oxygen Delivery Method Room Air 03/08/25 08:23 Temperature 98.7 F 03/08/25 08:23 Pulse Rate 74 03/08/25 08:23 Respiratory Rate 18 03/08/25 08:23 Blood Pressure 131/81 03/08/25 08:23 Pulse Oximetry 95 03/08/25 08:23 Oxygen Delivery Method Room Air 03/08/25 08:23 Medical Decision Making MDM Narrative Medical decision making narrative: The patient presented to us mostly with shingles more than 72 hours after the initial symptom I did explain to the patient right now although I would continue the Augmentin as a prophylaxis for infection, the localized tenderness in the lymphadenopathy is mostly explained by the shingles, there is no symptoms of disseminated shingles and the patient does not have any lesions around the eye The patient right now is out of 72 hours and there is no benefit of covering her with antiviral I did explain to the patient although I cannot start her antiviral right now I cannot cover her with the pain medication mostly tramadol for control of pain She have to avoid localized pressure at the area where there is a shingles especially in the posterior aspect of the scalp when she leaned backward. 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 The patient agrees with the following Diagnosis and Treatment plan and the patient will be discharged home. Discharge Plan Discharge Chief Complaint: Skin/Abscess/Foreign Body Clinical Impression: Shingles Patient Disposition: Home, Self-Care Time of Disposition Decision: 08:52 Condition: Good Prescriptions / Home Meds: New tramadol 50 mg tablet 50 mg PO Q8H PRN (Reason: pain) 3 Days Qty: 9 0RF No Action amoxicillin-pot clavulanate 875-125 mg tablet 1 tab PO BID Print Language: Bulgarian Instructions: Shingles (ED) Referrals: RASHEEDA LEON MD [Primary Care Provider] - 1 week
--- NOTE | 2025-03-08 09:13 | PC.NURSE ---
pt has had L sided neck pain since friday -- sseen at and prescribed an ATB. still having pain and lesions are increasing
== END 2025-03-08 09:00 | disposition home or self-care (01) ==
PROVIDERS: Emergency Provider Emergency Medicine; PCP Student in an Organized Health Care Education/Training Program
DX: B02.9 Zoster without complications (principal); R22.1 Localized swelling, mass and lump, neck; M54.2 Cervicalgia; H92.02 Otalgia, left ear
CPT/HCPCS: 99283